=== PATIENT | male | born 1965 | race Caucasian/White ===

== ENCOUNTER 2024-06-04 08:10 | Day surgery (SDC) | payer BC ==
[2024-06-04] MEDS ORDERED: Propofol 200 MG/20 ML SDV ONE (08:19)
[2024-06-04] MEDS ORDERED: Midazolam 1 MG/ML 2 ML SDV ONE (08:19)
[2024-06-04] MEDS ORDERED: fentaNYL 100 MCG/2 ML SDV ONE (08:19)
[2024-06-04] MEDS: Lactated Ringers 1,000 ML IV SCH (08:57)
== END 2024-06-04 11:50 | disposition home or self-care (01) ==
LOC: JP.SDS 08:10
PROVIDERS: ATTEND Surgery
DX: Z12.11 Encounter for screening for malignant neoplasm of colon (principal); D12.3 Benign neoplasm of transverse colon; D12.4 Benign neoplasm of descending colon; K63.5 Polyp of colon; K44.9 Diaphragmatic hernia without obstruction or gangrene; K22.89 Other specified disease of esophagus; F17.200 Nicotine dependence, unspecified, uncomplicated
CPT/HCPCS: 00813; 43239; 45380; 45385; 88305; J2250; J2704; J3010; J7120